=== PATIENT | female | born 1975 | race Caucasian/White ===

== ENCOUNTER 2024-11-16 02:42 | Inpatient (IN) | payer OTHER ==
[~2024-11-16] VITALS: Ht 167.6 cm; Wt 55.0 kg
[2024-11-16] MEDS: ONDANSETRON 4 MG TABLET PO ONE (03:06)
[2024-11-16] MEDS: IBUPROFEN 600 MG TABLET PO ONE (03:07)
[2024-11-16 03:33] LABS: BASOPHILS % (AUTO) 1.4 % (0.0-2.0); EOSINOPHILS % (AUTO) 4.5 % (1.0-6.0); HEMATOCRIT 46.6 % (36-46); HEMOGLOBIN 15.5 g/dL (12.0-16.0); LYMPHOCYTES # (AUTO) 2.5 K/uL (1.0-4.8); LYMPHOCYTES % (AUTO) 30.1 % (22.0-44.0); MEAN CORPUSCULAR HEMOGLOBIN 25.8 pg (26.0-34.0); MEAN CORPUSCULAR HGB CONC 33.4 G/dL (31.0-37.0); MEAN CORPUSCULAR VOLUME 77 fL (80-100); MONOCYTES # (AUTO) 0.6 K/uL (0.1-1.0); MONOCYTES % (AUTO) 7.5 % (2.0-9.0); NEUTROPHILS # (AUTO) 4.6 K/uL (1.8-7.7); NEUTROPHILS % (AUTO) 56.5 % (40.0-70.0); PLATELET COUNT (AUTO) 229 K/uL (150-450); RED BLOOD CELL COUNT(AUTO) 6.02 MIL/uL (4.00-5.20); RED CELL DISTRIBUTION WIDTH 16.5 % (11.5-14.5); WHITE BLOOD COUNT (AUTO) 8.2 K/uL (4.5-11.0)
[2024-11-16 03:38] LABS: ANION GAP 6 mmol/L (8-16); CALCIUM, TOTAL 8.9 mg/dL (8.8-10.5); CARBON DIOXIDE 31 mmol/L (22-29); CHLORIDE 103 mmol/L (98-107); CREATININE 0.78 mg/dL (0.60-1.30); GLOMERULAR FILTR. RATE CALC > 60 mL/min (>60); GLUCOSE,RANDOM 78 mg/dL (70-110); POTASSIUM 4.2 mmol/L (3.5-5.1); SODIUM SERUM 140 mmol/L (136-145); UREA NITROGEN, BLOOD 21 mg/dL (7-18)
[2024-11-16 03:44] LABS: ALANINE AMINOTRANSFERASE 28 U/L (12-78); ALBUMIN 3.1 g/dL (3.4-5.0); ALKALINE PHOSPHATASE 132 U/L (46-116); ASPARTATE AMINOTRANSFERASE 34 U/L (15-37); BILIRUBIN,TOTAL 0.5 mg/dL (0.1-1.0); TOTAL PROTEIN, SERUM 6.8 g/dL (6.4-8.2)
[2024-11-16 04:11] LABS: ALCOHOL, BLOOD (SERUM) < 3 mg/dL (0-10)
[2024-11-16 06:14] VITALS: BP 148/75; PULSE 67; RESP 20; TEMP 97.7; O2SAT 97
[2024-11-16] MEDS ORDERED: METOCLOPRAMIDE HCL 5 MG/ML 2 ML VIAL IVP PRN (07:45)
[2024-11-16] MEDS ORDERED: DICYCLOMINE HCL 10 MG CAPSULE PO PRN (07:45)
[2024-11-16] MEDS ORDERED: LORazepam 2 MG/ML VIAL IVP PRN (07:45)
[2024-11-16] MEDS ORDERED: LOPERAMIDE HCL 2 MG CAPSULE PO PRN (07:45)
[2024-11-16 08:30] VITALS: BP 144/69; PULSE 64; RESP 18; TEMP 97.9; O2SAT 97
[2024-11-16] MEDS: SODIUM CHLORIDE 0.9% 1,000 ML IV ONE (09:37)
[2024-11-16] MEDS ORDERED: ACETAMINOPHEN 650 MG RECTAL SUPPOSITORY PR PRN (12:00)
[2024-11-16] MEDS: METHADONE HCL 10 MG TABLET PO ONE (12:18)
[2024-11-16] MEDS: ACETAMINOPHEN 325 MG TABLET PO PRN (12:18)
[2024-11-16 15:36] VITALS: BP 139/56; PULSE 66; RESP 18; TEMP 98.1; O2SAT 97
[2024-11-16] MEDS ORDERED: LORazepam 2 MG/ML VIAL IM PRN (19:30)
[2024-11-16] MEDS: TEMAZEPAM 15 MG CAPSULE PO SCH (20:23)
[2024-11-16 20:26] VITALS: BP 145/71; PULSE 61; RESP 18; TEMP 97.5; O2SAT 97
[2024-11-17 04:18] VITALS: BP 149/71; PULSE 59; RESP 18; TEMP 97.7; O2SAT 97
[2024-11-17 07:42] VITALS: BP 113/66; PULSE 65; RESP 18; TEMP 97.9; O2SAT 100
[2024-11-17] MEDS ORDERED: ACET-2247 PO (10:13)
[2024-11-17 15:23] VITALS: BP 136/79; PULSE 80; RESP 18; TEMP 98.2; O2SAT 100
[2024-11-17 19:28] VITALS: BP 158/78; PULSE 78; RESP 18; TEMP 97.3; O2SAT 100
== END 2024-11-17 20:15 | DRG 897 ==
LOC: EMS 02:42 → EDH 03:36 → 6S 06:06
PROVIDERS: ADMIT Internal Medicine; ATTEND Internal Medicine
DX: F11.23 Opioid dependence with withdrawal (principal); Z91.199 Patient's noncompliance with other medical treatment and regimen due to unspecified reason; Z88.6 Allergy status to analgesic agent; Z79.899 Other long term (current) drug therapy
CPT/HCPCS: 80048; 80076; 84703; 85025; 99285; G0480; Q0162